=== PATIENT | female | born 1995 | race Caucasian/White ===

== ENCOUNTER 2016-09-22 09:28 | Emergency (ER) | payer OTHER ==
[2016-09-22 09:42] VITALS: RESP 16
[2016-09-22] MEDS ORDERED: IBUPROFEN 600 MG TAB PO ONE (10:05)
[2016-09-22] MEDS ORDERED: HYDROCODONE/APAP 5/325 TAB PO ONE (10:05)
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
[2016-09-22 11:16] VITALS: BP 97/69; PULSE 78; TEMP 97.9; O2SAT 96
== END 2016-09-22 11:20 | disposition home or self-care (01) ==
DX: S20.212A Contusion of left front wall of thorax, initial encounter (principal); V89.2XXA Person injured in unspecified motor-vehicle accident, traffic, initial encounter; Y92.410 Unspecified street and highway as the place of occurrence of the external cause